=== PATIENT | male | born 1970 | race Caucasian/White ===

== ENCOUNTER 2021-05-25 03:43 | Emergency (ER) | payer BC, SELFPAY ==
[2021-05-25] VITALS (23 sets, daily range): BP systolic 118–142; BP diastolic 86–96; PULSE 87–106; RESP 12–18; TEMP 37; O2SAT 94–99
--- NOTE | ~2021-05-25 | CT_ITS ---
EXAMINATION: CT brain wo con EXAM DATE: 05/25/2021 04:23 INDICATION: Syncope/head injury TECHNIQUE: Spiral CT of the head was performed without contrast. Axial, coronal and sagittal images were reviewed. The dose-length product (DLP) for this examination was 605.33 mGy-cm. The exposure w as tailored according to patient size, and iterative reconstruction (ASIR) was used as additional dos e reduction technique. Comparison is made to prior examination from 08/25/2019. FINDINGS: There is no acute intraparenchymal hemorrhage. No evidence of intraparenchymal brain mass lesion. No evidence of acute infarction. There is no mass effect or midline shift. The ventricles are normal in size. Slight asymmetry in the thickness of the tentorium, could indicate trace right te ntorial acute subdural hemorrhage.. There are no acute calvarial fractures. The orbits are unremarka ble. Small right frontal scalp contusion. The visualized sinuses and mastoid air cells are well aera gerson. IMPRESSION: 1. Probable trace right tentorial subdural hematoma. Reviewed, dictated and finalized at location G.
--- NOTE | ~2021-05-25 | XR_ITS ---
EXAMINATION: XR shoulder LT min 2V DATE: 05/25/2021 04:42 INDICATION: Left shoulder pain post fall TECHNIQUE: AP internally and externally rotated, AP oblique externally rotated and transscapular Y vi ews of the left shoulder were obtained. COMPARISON: Radiographs dated 08/25/2019 FINDINGS: Small corticated heterotopic ossicle projecting over the chronically widened left acromioclavicular j oint space. Alignment is otherwise normal. No fracture. Glenohumeral joint space is normal. Visualize d portions of the left lung are clear. Soft tissues are unremarkable. IMPRESSION: Chronic left acromioclavicular joint separation. No acute osseous abnormality. Reviewed, dictated and finalized at location A.
--- NOTE | ~2021-05-25 | CT_ITS ---
EXAMINATION: CT facial & cervical spine wo EXAM DATE: 05/25/2021 04:24 INDICATION: Neck pain status post fall. Head injury. Syncope. Neck pain. TECHNIQUE: Spiral CT of the facial bones was acquired in the axial plane. Coronal reformatted images were also reviewed. Spiral CT of the cervical spine was performed without contrast. Axial images we re reviewed. Coronal and sagittal reformatted images were also reviewed. The dose-length product (DL P) for this examination was 453.40 mGy-cm. The exposure was tailored according to patient size, and iterative reconstruction (ASIR) was used as additional dose reduction technique. Comparison is made t o prior examination from 08/25/2019. FINDINGS: FACIAL CT: Evidence of prior nasal bone fractures. Soft tissue swelling overlying the nose. There are no displaced acute nasal bone fractures. The mandible, sinuses and orbits are intact. The orbits, globes and extraocular muscles are unremarkable. There is mild mucoperiosteal thickening. There is small right frontal scalp contusion. CERVICAL CT: Compared to previous examination, the prevertebral soft tissue anterior to the mid cervi shahla spine slightly widened. 2 small calcific densities at the inferior endplate of C4 anteriorly, deg enerative versus possible small avulsion injury of the anterior longitudinal ligament. There is no wi dening of the disc spaces to otherwise suggest complete disruption of the ligament. No acute fracture line identified. The odontoid process is intact. The lateral masses of C1 line up with C2. Overall moderate cervical spondylosis. IMPRESSION: 1. Mid cervical prevertebral widening, can't exclude anterior ligamentous avulsion injury but no dis c space widening. Recommend follow-up MR for further evaluation. 2. Swelling Overlying old-appearing nasal bone fractures. 3. Right frontal scalp contusion. Reviewed, dictated and finalized at location G. IMPRESSION: 1. Mid cervical prevertebral widening, can't exclude anterior ligamentous avul bartolo injury but no disc space widening. Recommend follow-up MR for further ananya luation. 2. Swelling Overlying old-appearing nasal bone fractures. 3. Right frontal scalp contusion.
--- NOTE | ~2021-05-25 | XR_ITS ---
EXAMINATION: XR shoulder RT min 2V DATE: 05/25/2021 04:42 INDICATION: Right shoulder pain post fall TECHNIQUE: AP internally and externally rotated, AP oblique externally rotated and transscapular Y vi ews of the right shoulder were obtained. COMPARISON: 08/25/2019 FINDINGS: Normal alignment. Postoperative change of interval acromioplasty and rotator cuff repair with suture anchors at the humeral head. No fracture. Mild glenohumeral osteoarthritis with small marginal osteop hytes along the inferior humeral head. Mild acromioclavicular osteoarthritis. Visualized portions of the right lung are clear. Soft tissues are unremarkable. IMPRESSION: Change of interval acromioplasty and right rotator cuff repair. No acute osseous abnormality. Reviewed, dictated and finalized at location A. IMPRESSION: Change of interval acromioplasty and right rotator cuff repair. No acute osseou s abnormality.
--- NOTE | 2021-05-25 03:57 | ECG_ITS ---
Measurements Intervals [place] Rate: 101 P: NV: 0 QRS: -9 QRSD: 86 T: 27 QT: 337 QTc: 437 Interpretive Statements ATRIAL FIBRILLATION WITH RAPID VENTRICULAR RESPONSE NONSPECIFIC T-WAVE ABNORMALITY- INFERIOR LEADS ABNORMAL ECG Electronically Signed On 05-25-2021 7:49:19 CDT by Vinnie Agudelo D.O.
--- NOTE | 2021-05-25 03:58 | ED.GENADULT ---
HPI - General Adult General Chief complaint: Syncope Stated complaint: syncopal - neck/shoulder/back pain Time Seen by Provider: 05/25/21 03:51 History of Present Illness HPI narrative: Patient 50-year-old gentleman who presents the emergency department with chief complaint of syncope. Patient reports that he had to go to the restroom and was passing gas as he was straining he started to feel lightheaded and then he got up fell down and struck his head and neck patient reports that he has pain in his nose and face reports that he has neck pain and pain between his shoulder blades. Patient states that he is not having any chest pain denies shortness of breath denies abdominal pain denies vomiting or diarrhea. Patient reports that afterwards he had little bit of tingling in his thumbs but reports no focal neurological deficit afterwards Related Data Allergies Allergy/AdvReac Type Severity Reaction Status Date / Time No Known Allergies Allergy Verified 08/30/19 15:20 Review of Systems Review of Systems: A 10 system review of systems was completed on the patient and is negative except for what is stated in the HPI. Nursing and ancillary documentation was reviewed. [facility] Past Medical History Medical History (Updated 05/25/21 @ 06:22 by Diego Frazier MD) Patient denies medical problems Family History Family History Father Cerebrovascular accident Grandparent Cerebrovascular accident Mother Patient's mother is in good health Other Diabetes mellitus Hypertension Social History Social History Smoking status: Light tobacco smoker Tobacco type: cigars Second hand tobacco smoke exposure: No Alcohol intake: current Gender identity (if verbalized by the patient): Male Exam Narrative: GENERAL: Well-appearing, well-nourished, and in no acute distress. HEAD: Normocephalic, atraumatic. EYES: PERRLA and EOMI. ENT: Nares clear, no rhinorrhea there is dried blood in bilateral nostrils, there is an abrasion present on the bridge of the nose. Mucous membranes moist. NECK: Supple. CHEST: Clear to auscultation. No respiratory distress. HEART: Regular rate and rhythm. No murmur heard. Normal peripheral pulses. ABDOMEN: Soft, nontender, nondistended, normal active bowel sounds. EXTREMITIES: Normal range of motion. No edema. SKIN: Warm, dry, no rash. NEURO: No focal deficits. Alert and oriented x3. PSYCH: Normal mood and affect. Course Vital Signs Vital signs: Vital Signs Temperature 37.0 C 05/25/21 03:43 Pulse Rate 96 05/25/21 03:43 Respiratory Rate 18 05/25/21 03:43 Blood Pressure 129/90 05/25/21 03:43 Pulse Oximetry 99 05/25/21 03:43 Temperature 37.0 C 05/25/21 03:43 Pulse Rate 102 H 05/25/21 05:00 Respiratory Rate 14 05/25/21 05:00 Blood Pressure 121/96 H 05/25/21 05:01 Pulse Oximetry 99 05/25/21 05:01 Transfer Transfered to: [facility] Transportation: ALS Transfer rationale: Trauma/neurosurgery Accepting physician: narciso Medical Decision Making Vital Signs Vital Signs: Vital Signs Temperature 37.0 C 05/25/21 03:43 Pulse Rate 96 05/25/21 03:43 Respiratory Rate 18 05/25/21 03:43 Blood Pressure 129/90 05/25/21 03:43 Pulse Oximetry 99 05/25/21 03:43 Temperature 37.0 C 05/25/21 03:43 Pulse Rate 102 H 05/25/21 05:00 Respiratory Rate 14 05/25/21 05:00 Blood Pressure 121/96 H 05/25/21 05:01 Pulse Oximetry 99 05/25/21 05:01 Lab Data Result diagrams: 05/25/21 04:08 05/25/21 04:08 Labs: Lab Results 05/25/21 05/25/21 05/25/21 Range/Units 04:08 04:08 04:08 WBC 9.7 (4.5-10.0) K/mm3 RBC 4.27 L (4.6-6.20) M/mm3 Hgb 14.2 (14.0-18.0) g/dL Hct 42.2 (42.0-52.0) % MCV 98.8 (80-100) fl MCH 33.3 (26-34) pg MCHC 33.6 (32
[2021-05-25] MEDS: SODIUM CHLORIDE 0.9% IV 1,000 ML 999 ML IV CONT (04:11)
[2021-05-25 04:17] LABS: Basophils Percent Auto 0.4 % (0.2-1.2); Eosinophils Absolute Auto 0.2 K/mm3 (0-0.3); Eosinophils Percent Auto 2.4 % (0-4.4); Hematocrit 42.2 % (42.0-52.0); Hemoglobin 14.2 g/dL (14.0-18.0); Immature Granulocyte Absolute 0.03 K/mm3 (0.00-0.031); Immature Granulocyte Percent A 0.3 % (0-0.5); Lymphocytes Absolute Auto 1.59 K/mm3 (0.9-3.2); Lymphocytes Percent Auto 16.4 % (18.3-44.2); Mean Corpuscular HGB Conc 33.6 g/dl (32-36); Mean Corpuscular Hemoglobin 33.3 pg (26-34); Mean Corpuscular Volume 98.8 fl (80-100); Mean Platelet Volume 9.1 fl (7.4-10.4); Monocytes Absolute Auto 0.6 K/mm3 (0.1-0.6); Monocytes Percent Auto 5.7 % (2.6-8.5); Neutrophils Absolute Auto 7.2 K/mm3 (1.3-6.7); Neutrophils Percent Auto 74.8 % (45.5-73.1); Platelet Count Result 252 k/mm3 (150-375); Red Blood Count 4.27 M/mm3 (4.6-6.20); Red Cell Distribution Width 11.3 % (11.5-14.5); White Blood Count 9.7 K/mm3 (4.5-10.0)
[2021-05-25 04:27] LABS: INR 0.9; Prothrombin Time 12.3 Seconds (11.1-14.7)
[2021-05-25 04:28] LABS: Partial Thromboplastin Time 28.7 SECONDS (22.3-36.8)
[2021-05-25 04:33] LABS: Alanine Aminotransferase 20 U/L (4-50); Albumin Level 4.1 g/dL (3.5-5.1); Alkaline Phosphatase 53 U/L (38-126); Anion Gap 12 mmol/L (8-16); Aspartate Amino Transferase 24 U/L (17-59); Bilirubin,Total 0.4 mg/dL (0.2-1.3); Blood Urea Nitrogen 16 mg/dL (9-20); Calcium 9.1 mg/dL (8.4-10.2); Carbon Dioxide 24 mmol/L (22-30); Chloride 105 mmol/L (98-107); Estimated CRCL calculation 84 ml/min; Estimated Glomerular Filt Rate > 60; Glucose 111 mg/dL (65-110); Potassium 3.3 mmol/L (3.4-5.0); Sodium 141 mmol/L (137-145)
[2021-05-25 04:45] LABS: Troponin I < 0.012 ng/mL (0.000-0.034)
--- NOTE | 2021-05-25 06:43 | PC.NURSE ---
Pt is being transferred to [facility]. Nurse to Nurse report completed - talked to Augustin CHAND. Pt has been updated and has no questions.
[2021-05-25] MEDS: MORPHINE SULFATE (*CRX) 4 MG/ML INJ IV PUSH (06:52)
== END 2021-05-25 07:12 | disposition short-term general hospital (02) ==
PROVIDERS: Emergency Provider Emergency Medicine; PCP Internal Medicine
DX: S06.5X0A Traumatic subdural hemorrhage without loss of consciousness, initial encounter (principal); I48.91 Unspecified atrial fibrillation; S02.2XXA Fracture of nasal bones, initial encounter for closed fracture; S13.4XXA Sprain of ligaments of cervical spine, initial encounter; R55 Syncope and collapse; Z72.0 Tobacco use; W01.10XA Fall on same level from slipping, tripping and stumbling with subsequent striking against unspecified object, initial encounter
CPT/HCPCS: 36415; 70450; 70486; 72125; 73030; 80053; 83735; 84484; 85025; 85610; 85730; 93005; 96361; 96374; 99285; J2270; J7030; L0140

== ENCOUNTER 2021-08-13 10:45 | Outpatient (CLI) | payer BC, SELFPAY ==
--- NOTE | 2021-08-17 10:40 | WPDNEUROLOGY ---
Neurology EEG Report General Information Date of Study: 08/13/21 TEST eeg DIAGNOSIS syncope and collapse CONDITION OF RECORDING awake and drowsy EEG NUMBER [id number] CLINICAL HISTORY patient reported 2 months ago he went to stand up and lost consciousness EEG DESCRIPTION basic resting occipital frequency consists of low to medium voltage 8 to 10 hertz per 2nd alpha admixed with low-voltage 15 to 21 hertz per 2nd beta. In drowsiness low-voltage beta activity seen diffusely. Hyperventilation not done. Photic stimulation produced normal drive. Non paroxysmal. Nonfocal. Nonlateralizing. IMPRESSION No significant abnormalities noted particularly there is no evidence of any paroxysmal activity clinical correlation recommended
== END 2021-08-13 10:46 | disposition home or self-care (01) ==
LOC: ANHCARD 10:48
PROVIDERS: PCP Internal Medicine; Visit Provider Internal Medicine
DX: R55 Syncope and collapse (principal)
CPT/HCPCS: 95816

== ENCOUNTER 2021-08-25 12:48 | Outpatient (CLI) | payer BC, SELFPAY ==
--- NOTE | 2021-08-25 13:05 | ECHO_ITS ---
Patient Info Name: Cesar Paz Age: 50 years : 1970 Gender: Male Ht: 72 in Wt: 195 lbs BSA: 2.13 m2 HR: 79 bpm BP: 111 / 81 mmHg Technical Quality: Good Exam Date: 08/25/2021 1:15 PM Exam Location: [facility] Patient Status: Outpatient Admit Date: 08/25/2021 Staff Ordering Physician: Jayson Mckeon DO Crayon Sawyer: GERI Attending Provider: Jayson Mckeon DO Referring Physician: Linda BABB; Exam Type: CA echo doppler color flow Study Info Indications R55 - Syncope and collapse Complete two-dimensional, color flow and Doppler transthoracic echocardiogram is performed. Summary 1. Complete two-dimensional, color flow and Doppler transthoracic echocardiogram is performed. 2. Left ventricular chamber dimension is normal. 3. Left ventricular systolic function is normal, estimated at 55-60%. 4. The left ventricular diastolic function is grade I diastolic dysfunction. 5. E/e' 7 is not elevated. 6. There is trace tricuspid valve regurgitation. 7. There is trace pulmonic regurgitation. Left Ventricle E/e' 7 is not elevated. Left ventricular chamber dimension is normal. Left ventricular systolic function is normal, estimated at 55-60%. The left ventricular diastolic function is grade I diastolic dysfunction. Right Ventricle Right ventricular systolic function is normal and with normal TAPSE 2.3 cm. Right ventricular chamber dimension is normal. Left Atria Left atrial chamber dimension is normal. Right Atria Right atrial chamber dimension is normal. Aortic Valve The aortic valve is trileaflet. There is no aortic valve stenosis. There is no aortic valve regurgitation. Pulmonic Valve There is trace pulmonic regurgitation. Mitral Valve There is no mitral valve stenosis. There is no mitral valve regurgitation. Tricuspid Valve RVSP is not calculated due to an inadequate TR jet. There is trace tricuspid valve regurgitation. Pericardium/Pleural There is no pericardial effusion. Inferior Vena Cava Normal inferior vena cava with >50% collapse upon inspiration consistent with normal right atrial pressure, 5 mmHg. Aorta The aortic root size at the sinus of Valsalva is normal. Left Ventricular Outflow Tract Name Value Normal LVOT 2D LVOT Diameter 2.4 cm LVOT Doppler LVOT Peak Gradient 3 mmHg LVOT Mean Gradient 1 mmHg LVOT VTI 17 cm LVOT VTI/AV VTI Ratio 0.8 LVOT Stroke Volume 73 ml LVOT CO 5.1 l/min LVOT CI 2.4 l/min/m2 Pulmonic Valve Name Value Normal PV Doppler PV Peak Gradient 3 mmHg Mitral Valve
--- NOTE | 2021-08-27 16:30 | WPDHOLTEREM ---
Holter/Event Monitor Holter/Event Monitor Date of procedure: 08/25/21 Holter/Event Procedure: 48 Hr Holter Monitor Indications: Syncope Conclusion: 1. 48 hour holter monitor on 08/25/21. 2. Predominant rhythm is sinus rhythm. HR range 40-136 bpm; average HR 81 bpm. 3. There are 64 premature supraventricular complexes and 4 supraventricular couplets. One atrial tachycardia at 154 bpm lasting 4 beats. 4. There are 1,414 premature ventricular complexes, 1 ventricular couplet, 15 ventricular trigeminy. No ventricular tachycardia. 5. No sinoatrial or atrioventricular blocks. No significant pauses greater than 2 seconds. 6. No symptoms available for correlation.
== END 2021-08-25 12:49 | disposition home or self-care (01) ==
LOC: ANHCARD 12:50
PROVIDERS: PCP Internal Medicine; Visit Provider Internal Medicine
DX: R55 Syncope and collapse (principal)
CPT/HCPCS: 93225; 93226; 93306

== ENCOUNTER 2022-01-28 00:55 | Day surgery (SDC) | payer BC, SELFPAY ==
[2022-01-21 09:35] VITALS: BMI 26.5
[2022-01-28 08:03] VITALS: BP 106/65; PULSE 68; RESP 18; TEMP 36.4; O2SAT 100
[2022-01-28] MEDS: LACTATED RINGERS 1,000 ML 150 ML IV CONT (08:05)
--- NOTE | 2022-01-28 08:46 | WPDGICN ---
Assessment and Plan Assessment and plan (1) Encounter for screening colonoscopy: Code(s): Z12.11 - Encounter for screening for malignant neoplasm of colon Status: Acute Assessment and Plan: Patient presents today for screening colonoscopy. Appears to be at average risk for colon polyps. GI Consult Note Consult date/time: 01/28/22 08:46 HPI: Cesar Paz is a 51 year old male presents for screening colonoscopy. Patient reports his current weight appetite bowel movements are normal. He denies abdominal pain. He has had no bleeding. Family history is noncontributory. Patient presents today for screening colonoscopy. Review of Systems Review of Systems: All systems reviewed & are unremarkable except as noted in HPI and below PMFSH Past Medical History Medical History (Updated 01/28/22 @ 08:47 by Hermelindo Gresham MD) Patient denies medical problems Family History Family History Father Cerebrovascular accident Grandparent Cerebrovascular accident Mother Patient's mother is in good health Other Diabetes mellitus Hypertension Social History Social History Smoking status: Never smoker Tobacco type: cigars Second hand tobacco smoke exposure: No Alcohol intake: current Alcohol use details: occasional Substance use: never Substance use type: does not use Living arrangements: with family Gender identity (if verbalized by the patient): Male Spiritual care concerns: No Meds Home Medications and Allergies Home Medications Medication Instructions Recorded Confirmed Type No Home Medications 07/16/21 01/28/22 History Allergies Allergy/AdvReac Type Severity Reaction Status Date / Time No Known Allergies Allergy Verified 01/28/22 08:01 Vital Signs Vital Signs - 24 hr 01/28/22 08:03 Temperature 97.5 F L Pulse Rate 68 Respiratory Rate 18 Blood Pressure 106/65 Pulse Oximetry 100 Exam Narrative: Physical exam reveals patient to be alert. Vital signs stable. HEENT exam is unremarkable. Patient is anicteric. Lungs are clear to auscultation and percussion. Heart is without murmur or extra sounds. Abdominal exam bowel sounds are present soft nontender with no organomegaly. Digital external rectal exam is normal.
--- NOTE | 2022-01-28 09:12 | WPDANESEPPF ---
Anes - Initial Pre Proc Eval Procedure: Operation Date: 01/28/22 09:15 Proposed Procedures p Screening Colonoscopy - Hermelindo Gresham MD Date/Time: 01/28/22 09:12 Surgeon: Hermelindo Gresham MD Pre Op Diagnosis: neoplasm screening Patient Data Age: 51 Gender: M Height: 1.83 m Weight: 88.4 kg Last Vital Signs Temp 97.5 F L 01/28/22 08:03 Pulse 68 01/28/22 08:03 Resp 18 01/28/22 08:03 BP 106/65 01/28/22 08:03 Pulse Ox 100 01/28/22 08:03 Allergies Allergy/AdvReac Type Severity Reaction Status Date / Time No Known Allergies Allergy Verified 01/28/22 08:01 Home Medications Medication Instructions Recorded Confirmed Type No Home Medications 07/16/21 01/28/22 History Patient hx anesthesia problems: none Family hx anesthesia problems: none Results Review: All pre-operative results and documents have been reviewed as part of the pre-operative evaluation. [facility] Past Medical History Medical History (Updated 01/28/22 @ 08:47 by Hermelindo Gresham MD) Patient denies medical problems Family History Family History Father Cerebrovascular accident Grandparent Cerebrovascular accident Mother Patient's mother is in good health Other Diabetes mellitus Hypertension Social History Social History Smoking status: Never smoker Tobacco type: cigars Second hand tobacco smoke exposure: No Alcohol intake: current Alcohol use details: occasional Substance use: never Substance use type: does not use Living arrangements: with family Gender identity (if verbalized by the patient): Male Spiritual care concerns: No Anes - Eval Final PreProcedure Day of Procedure 01/28/22 09:12 Patient weight: normal Heart: regular rate and rhythm Lungs: clear to auscultation Airway: Mallampati scale class II (has neck fusion) Neurological: alert and oriented Last oral intake: >/= 8 hours ASA classification: II Emergent: no Anesthetic plan: proceed Anesthesia type and monitoring: general GIVS and standard monitoring Results Review: All pre-operative results and documents have been reviewed as part of the pre-operative evaluation. Informed Consent: The patient's anesthetic plan and its attendant risks and benefits were discussed with the patient/family/POA. Questions were solicited and answers provided to the satisfaction of the patient/family/POA.
[2022-01-28 09:45] VITALS: BP 92/60; PULSE 59; RESP 18; O2SAT 100
[2022-01-28 09:55] VITALS: BP 104/66; PULSE 59; RESP 18; O2SAT 98
[2022-01-28 10:05] VITALS: BP 114/71; PULSE 57; RESP 18; O2SAT 100
== END 2022-01-28 10:13 | disposition home or self-care (01) ==
PROVIDERS: PCP Internal Medicine; Visit Provider Internal Medicine Gastroenterology
PROC: 0DJD8ZZ Inspection of Lower Intestinal Tract, Via Natural or Artificial Opening Endoscopic (ICD-10-PCS; CPT 45378; principal; 2022-01-28 09:15)
DX: Z12.11 Encounter for screening for malignant neoplasm of colon (principal); K64.8 Other hemorrhoids; K57.30 Diverticulosis of large intestine without perforation or abscess without bleeding; F17.299 Nicotine dependence, other tobacco product, with unspecified nicotine-induced disorders
CPT/HCPCS: 45378; J2704; J7120

== ENCOUNTER 2022-11-11 11:55 | Outpatient (CLI) | payer BC, SELFPAY ==
[2022-11-11 12:46] LABS: Influenza A QL RT-PCR Negative (Negative); Influenza B QL RT-PCR Negative (Negative); SARS-CoV-2 RNA PCR Negative
== END 2022-11-11 11:56 | disposition home or self-care (01) ==
LOC: ANHLAB 11:56
PROVIDERS: PCP Internal Medicine; Visit Provider Internal Medicine
DX: R50.9 Fever, unspecified (principal); Z20.822 Contact with and (suspected) exposure to COVID-19
CPT/HCPCS: 87636

== ENCOUNTER 2025-02-26 12:53 | Emergency (ER) | payer BC, SELFPAY ==
--- NOTE | 2025-02-26 12:56 | ED.WOUNDLAC ---
HPI - Wound/Laceration General Stated Complaint: Cut Right Hand Source: patient and RN notes reviewed Mode of arrival: ambulatory Limitations: no limitations History of Present Illness HPI narrative: Patient is a 54-year-old male who presents to the [facility] with complaints of laceration to his right wrist. Patient states that he was making a light fixture with a piece of steel and while he was cleaning the steel, he accidentally cut his wrist. Patient presents with a 2 cm laceration to the lateral aspect of his right wrist. No active bleeding. He has full range of motion of the right wrist and hand. He is neurovascularly intact distally. Sensation is intact distally. Related Data Allergies Allergy/AdvReac Type Severity Reaction Status Date / Time No Known Allergies Allergy Verified 11/11/22 14:36 Review of Systems Review of Systems: CONSTITUTIONAL: Denies fever, chills, or sweats. EYES: Denies visual changes, redness, or discharge. ENT: Denies otalgia and sore throat CARDIOVASCULAR: Denies chest pain, palpitations, or edema. RESPIRATORY: Denies cough or dyspnea. GASTROINTESTINAL: Denies abdominal pain, nausea, vomiting, or diarrhea. GENITOURINARY: Denies dysuria or hematuria. SKIN: Reports laceration to the right wrist. MUSCULOSKELETAL: Denies back pain, joint pain, or myalgia. NEUROLOGIC: Denies headache, numbness, or weakness. Pertinent positives per HPI. [facility] Past Medical History Medical History (Updated 02/26/25 @ 13:11 by Maggy Gallo APRN) Patient denies medical problems Family History Family History Father Cerebrovascular accident Grandparent Cerebrovascular accident Mother Patient's mother is in good health Other Diabetes mellitus Hypertension Social History Social History Smoking status: Never smoker Tobacco type: cigars Second hand tobacco smoke exposure: No Alcohol intake: current Alcohol use details: occasional Substance use: never Substance use type: does not use Current Housing: Decline to Answer Concerned About Future Housing: Decline to Answer Difficulty Paying Gas/Electric Bills: Decline to Answer Difficulty Paying for Meds: Decline to Answer Currently Unemployed: Decline to Answer Education: Decline to Answer Difficulty w/ Childcare or Family Care: Decline to Answer Living arrangements: with family Gender identity (if verbalized by the patient): Male Spiritual care concerns: No Comments At the time of my signature, I reviewed and agree with the nursing past medical, surgical, social, and family history. There is no relevant family history pertinent to the patient complaint. Exam Narrative: GENERAL: This is a well-nourished, well-developed patient, in no apparent distress. HEAD: normocephalic, atraumatic. EYES: Sclera clear/white. Vision is grossly intact. EARS: External ears normal. Hearing grossly intact. NOSE: External nose normal with no obvious nasal discharge, nares without redness, no rhinorrhea. THROAT: Mucous membranes moist, posterior pharynx clear. NECK: Neck supple, non-tender without lymphadenopathy, masses or thyromegaly. CARDIOVASCULAR: Regular rate and rhythm without murmurs, gallops, or rubs. RESPIRATORY: Clear to auscultation. Breath sounds equal bilaterally. No wheezes, rales, or rhonchi. GASTROINTESTINAL: Abdomen soft, non-tender, nondistended. Bowel sounds are active. No hepato-splenomegaly, or palpable masses. No guarding. SKIN: 2 cm laceration to the lateral aspect of the right wrist with no active bleeding. Patient has full range of motion of his right wrist and hand. Distal neurovascular and motor status intact. NEURO: awake, alert, and oriented to person, place and time. There were no obvious focal neurologic abnormalities. Course Course Level of Care: Express Care Visit Vital Signs Vital signs: Vital Signs Temperature 97.1 F L 02/26/25 12:57 Pulse Rate 77 02/26/25 12:57 Respiratory Rate 16 02/26/25 12:57 Blood Pressure 101/82 02/26/25 12:57 Pulse Oximetry 100 02/26/25 12:57 Oxygen Delivery Room Air 02/26/25 12:57 Temperature 97.1 F L 02/26/25 12:57 Pulse Rate 77 02/26/25 12:57 Respiratory Rate 16 02/26/25 12:57 Blood Pressure 101/82 02/26/25 12:57 Pulse Oximetry 100 02/26/25 12:57 Oxygen Delivery Room Air 02/26/25 12:57 Reviewed Procedures Laceration Laceration 1: Date: 02/26/25 Time: 13:08 Site: upper extremity Side (If applicable): right Size (cm): 2 Description: linear Depth: simple, single layer Pre-repair: irrigated ====== Skin Level ====== Skin layer closed with: dermabond ====== Subcutaneous Layer ====== ====== Muscle Layer ====== ====== Tendon Layer ====== MDM - Wound/Laceration MDM Narrative Medical decision making narrative: Wound thoroughly cleaned in the express care. Tetanus updated. Laceration repaired with Dermabond. Nonstick dressing applied. Patient tolerated well. Differential Diagnosis Differential diagnosis: Likely laceration, abrasion and avulsion of skin Critical Care Time Critical Care Time Critical Care Time: No Discharge Plan Discharge Clinical Impression: Laceration of right wrist Qualifiers: Encounter type: initial encounter Qualified Code(s): S61.511A - Laceration without foreign body of right wrist, initial encounter Patient Disposition: Home Condition: Stable Instructions: Laceration (ED), Skin Adhesive Care (ED) Additional Instructions: -Keep the dressing clean and dry for 1-2days; then you may gently clean with soap and water whenever you take a shower; however no continuous water contact like dishes or swimming. Getting them too wet can slow down healing and raise your chance of getting an infection. -watch for signs of infection including: redness or swelling around the cut, or pus drains from the cut. It is normal for clear yellow fluid to drain from the cut in the first few days. -adhesive works like a bandage; do not use antibiotic onitment as it can break down the adhesive -You can shower while the adhesive is on your skin, but do not take a bath or soak or scrub the area for 7-10 days. Dry your skin by patting it gently with a towel. -The adhesive will peel off on its own; usually by 5-10days. If after 10 days, you still have adhesive on you, you can use antibiotic ointment or petroleum jelly to get it off. After you heal, you should protect the scar from the sun. Use sunscreen on the area or wear clothes or a hat that covers the scar. 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
[2025-02-26 12:57] VITALS: BP 101/82; PULSE 77; RESP 16; TEMP 36.2; O2SAT 100
[2025-02-26] MEDS: TETANUS,DIPHTHERIA,AC PERTUSSIS ADULT (0.5 ML) BOOSTRIX IM (13:12)
== END 2025-02-26 13:23 | disposition home or self-care (01) ==
PROVIDERS: Emergency Provider Nurse Practitioner
DX: S61.511A Laceration without foreign body of right wrist, initial encounter (principal); W45.8XXA Other foreign body or object entering through skin, initial encounter; Z23 Encounter for immunization
CPT/HCPCS: 12001; 90471; 90715; 99212; G0463